=== PATIENT | male | born 1985 | race Asian ===

== ENCOUNTER 2020-02-10 00:56 | Emergency (ER) | payer MEDICAID, OTHER ==
[~2020-02-10] VITALS: Ht 162.6 cm; Wt 54.5 kg
[~2020-02-10 00:56] MED LIST: INDO50CA97 PO
[2020-02-10] MEDS ORDERED: PHENYLEPHRINE HCL 1% 15 ML NASAL SPRAY NASAL ONE ×2 (01:14→01:45)
[2020-02-10 03:04] VITALS: BP 135/100
== END 2020-02-10 03:29 | disposition home or self-care (01) ==
LOC: EMS 00:57
DX: R04.0 Epistaxis (principal)
CPT/HCPCS: Z7502; Z7610

== ENCOUNTER 2020-02-13 08:10 | Emergency (ER) | payer OTHER ==
[~2020-02-13] VITALS: Ht 162.6 cm; Wt 54.5 kg
[2020-02-13 09:45] VITALS: BP 154/88
== END 2020-02-13 10:24 | disposition home or self-care (01) ==
LOC: EMS 08:11
DX: R04.0 Epistaxis (principal)
CPT/HCPCS: Z7502

== ENCOUNTER 2020-02-15 09:25 | Emergency (ER) | payer OTHER ==
[~2020-02-15] VITALS: Ht 162.6 cm; Wt 54.5 kg
[2020-02-15 09:26] VITALS: BP 143/77
[2020-02-15 10:44] LABS: HEMATOCRIT 37.8 % (41-53); HEMOGLOBIN 12.7 g/dL (13.5-17.5)
[2020-02-15] MEDS ORDERED: OXYMETAZOLINE HCL 0.05% 15 ML NASAL SPRAY NASAL ONE (11:30)
== END 2020-02-15 11:54 | disposition home or self-care (01) ==
LOC: EMS 09:25
DX: R04.0 Epistaxis (principal)
CPT/HCPCS: 85014; 85018

== ENCOUNTER 2022-03-29 16:06 | Emergency (ER) | payer OTHER ==
[~2022-03-29] VITALS: Ht 162.6 cm; Wt 54.5 kg
[2022-03-29 16:26] LABS: COVID AG,FIA SOURCE NASAL SWAB
[2022-03-29 16:46] LABS: INFLUENZA TYPE A NEGATIVE FOR TYPE A (NEGATIVE); INFLUENZA TYPE B NEGATIVE FOR TYPE B (NEGATIVE)
[2022-03-29] MEDS ORDERED: SODIUM CHLORIDE 0.9% 1,000 ML IV ONE (17:15)
[2022-03-29] MEDS ORDERED: KETOROLAC TROMETHAMINE 30 MG/ML VIAL IVP ONE (17:15)
[2022-03-29 17:28] LABS: BASOPHILS % (AUTO) 0.3 % (0.0-2.0); EOSINOPHILS % (AUTO) 0.6 % (1.0-6.0); HEMATOCRIT 44.6 % (41-53); HEMOGLOBIN 14.6 g/dL (13.5-17.5); LYMPHOCYTES # (AUTO) 0.9 K/uL (1.0-4.8); LYMPHOCYTES % (AUTO) 9.8 % (22.0-44.0); MEAN CORPUSCULAR HEMOGLOBIN 28.9 pg (26.0-34.0); MEAN CORPUSCULAR HGB CONC 32.8 G/dL (31.0-37.0); MEAN CORPUSCULAR VOLUME 88 fL (80-100); MONOCYTES % (AUTO) 11.1 % (2.0-9.0); NEUTROPHILS # (AUTO) 7.2 K/uL (1.8-7.7); NEUTROPHILS % (AUTO) 78.2 % (40.0-70.0); PLATELET COUNT (AUTO) 190 K/uL (150-450); RED BLOOD CELL COUNT(AUTO) 5.07 MIL/uL (4.50-5.90); RED CELL DISTRIBUTION WIDTH 12.7 % (11.5-14.5)
[2022-03-29 17:36] LABS: ANION GAP 7 mmol/L (8-16); CALCIUM, TOTAL 9.3 mg/dL (8.8-10.5); CARBON DIOXIDE 31 mmol/L (22-29); CHLORIDE 99 mmol/L (98-107); GLOMERULAR FILTR. RATE CALC > 60 mL/min (>60); GLUCOSE,RANDOM 107 mg/dL (70-110); POTASSIUM 4.6 mmol/L (3.5-5.1); SODIUM SERUM 137 mmol/L (136-145); UREA NITROGEN, BLOOD 11 mg/dL (7-18)
[2022-03-29 17:41] LABS: ALANINE AMINOTRANSFERASE 23 U/L (12-78); ALBUMIN 2.9 g/dL (3.4-5.0); ALKALINE PHOSPHATASE 94 U/L (46-116); ASPARTATE AMINOTRANSFERASE 24 U/L (15-37); BILIRUBIN,TOTAL 0.2 mg/dL (0.1-1.0); TOTAL PROTEIN, SERUM 8.7 g/dL (6.4-8.2)
[2022-03-29 17:58] LABS: LACTIC ACID 0.9 mmol/L (0.4-2.0)
[2022-03-29 18:17] VITALS: BP 120/72
[2022-03-29] MEDS ORDERED: ACET-2080 PO (18:36)
[2022-03-29] MEDS ORDERED: IBUP-1554 PO (18:36)
== END 2022-03-29 18:59 | disposition home or self-care (01) ==
LOC: EMS 16:07
DX: J06.9 Acute upper respiratory infection, unspecified (principal); R51.9 Headache, unspecified; M10.9 Gout, unspecified; Z20.822 Contact with and (suspected) exposure to COVID-19
CPT/HCPCS: 99285; 96374; 71045; 96361; 87426; 80053; 83605; 85025; 87804; 36415; 93005; J1885; J7030